=== PATIENT | male | born 1955 | race Hispanic/Latino ===

== ENCOUNTER 2019-02-06 11:29 | Inpatient (IN) | payer MEDICARE ==
[2019-02-06] MEDS ORDERED: LORazepam 2 MG/ML VIAL IM PRN (12:11)
[2019-02-06] MEDS ORDERED: HALOPERIDOL LACTATE 5 MG/1 ML INJ IM PRN (12:11)
[2019-02-06 17:38] LABS: Basophils # (Auto) 0.1 K/mm3 (0.0-0.1); Basophils % (Auto) 0.9 % (0.0-1.8); Eosinophils # (Auto) 0.1 K/mm3 (0.0-0.4); Eosinophils % (Auto) 1.9 % (0.0-4.3); Hematocrit 43.3 % (35.5-45.6); Hemoglobin 14.1 gm/dl (11.8-15.2); Lymphocytes # (Auto) 1.6 K/mm3 (1.2-5.4); Lymphocytes % (Auto) 24.5 % (13.4-35.0); Mean Corpuscular HGB Conc 33 % (32-34); Mean Corpuscular Volume 92 fl (84-94); Monocytes # (Auto) 0.4 K/mm3 (0.0-0.8); Monocytes % (Auto) 6.5 % (0.0-7.3); Platelet Count 248 K/mm3 (140-440); Red Blood Count 4.73 M/mm3 (3.65-5.03); Red Cell Distribution Width 14.9 % (13.2-15.2)
[2019-02-06 19:10] LABS: Alanine Aminotransferase 11 units/L (7-56); Albumin 3.8 g/dL (3.9-5); BUN/Creatinine Ratio 21; Blood Urea Nitrogen 15 mg/dL (9-20); Calcium 8.7 mg/dL (8.4-10.2); HDL Cholesterol 62 mg/dL (40-59); Hemolysis Index 29; LDL Cholesterol,Direct 66 mg/dL (50-130)
[2019-02-06] MEDS: traZODone 50 MG TAB PO SCH (23:13)
[2019-02-06] MEDS: risperiDONE 1 MG TAB PO SCH (23:14)
[2019-02-07] MEDS ORDERED: DOCUSATE SODIUM 100 MG CAP PO PRN (09:29)
[2019-02-07] MEDS ORDERED: NON-FORMULARY EACH (Cyclobenzaprine 10 MG) PO PRN (09:29)
[2019-02-07] MEDS ORDERED: risperiDONE 1 MG TAB PO SCH (10:00)
[2019-02-07] MEDS ORDERED: TIOTROPIUM 18 MCG CAP INHALATION IH SCH (10:00)
[2019-02-07] MEDS ORDERED: TRANDOLAPRIL PO SCH (10:00)
[2019-02-07] MEDS ORDERED: HYDROCHLOROTHIAZIDE 50 MG PO SCH (10:00)
[2019-02-07] MEDS ORDERED: VERAPAMIL PO SCH (10:00)
[2019-02-07] MEDS ORDERED: CYCLOBENZAPRINE 10 MG TAB PO PRN (10:20)
[2019-02-07] MEDS: FUROSEMIDE 20 MG TAB PO SCH (11:07)
[2019-02-07] MEDS: GABAPENTIN 300 MG CAP PO SCH ×2 (11:07→21:06)
[2019-02-07] MEDS: amLODIPine 5 MG TAB PO SCH (11:07)
[2019-02-07] MEDS: hydroCHLOROthiazide 25 MG TAB PO SCH (11:07)
[2019-02-07] MEDS: DULoxetine 30 MG CAP PO SCH (11:08)
[2019-02-07] MEDS: LORATADINE (NF) 10 MG TAB PO SCH (11:08)
[2019-02-07] MEDS: risperiDONE 1 MG TAB PO SCH ×2 (11:09→21:06)
--- NOTE | 2019-02-07 13:05 | History and Physical Report ---
GP History & Physical - History of Present Illness Date of admission: 02/06/19 Date of Examination: 02/07/19 Chief Complaint: Seeing stuffs History of Present Illness: Patient is a 63 y/o CM with h/o HTN, COPD, HLD, Polysubstance (Alcohol, Meth & THC) use disorder brought in by EMS. He presents with distressing visual hallucination, stating that he sees people sticky gel on his eyes and putting tooth picks in his ears. He admits to using meth and THC. He denies SI/HI Legal Status: Voluntary Patient Problems: Current Active Problems Methamphetamine use disorder, severe (Acute) Substance-induced psychotic disorder with hallucinations (Acute) Reaction to Hospitalization: Accepting Medications and Allergies Allergies Allergy/AdvReac Type Severity Reaction Status Date / Time ibuprofen Allergy Nausea Verified 02/06/19 21:29 Home Medications Medication Instructions Recorded Confirmed Last Taken Type Cyclobenzaprine 10 mg PO TID PRN 02/06/19 02/06/19 Unknown History DULoxetine [Cymbalta] 60 mg PO QDAY 02/06/19 02/06/19 Unknown History Docusate Sodium [Colace CAP] 100 mg PO DAILY PRN 02/06/19 02/06/19 Unknown History Furosemide [Lasix] 20 mg PO QDAY 02/06/19 02/06/19 Unknown History Gabapentin [Neurontin] 300 mg PO Q8HR 02/06/19 02/06/19 Unknown History Loratadine [Claritin] 10 mg PO DAILY 02/06/19 02/06/19 Unknown History Pravastatin [Pravachol] 40 mg PO QHS 02/06/19 02/06/19 Unknown History Tiotropium [Spiriva] 18 mcg IH QDAY 02/06/19 02/06/19 Unknown History Trandolapril/Verapamil HCl 4 mg PO DAILY 02/06/19 02/06/19 Unknown History amLODIPine [Norvasc] 5 mg PO DAILY 02/06/19 02/06/19 Unknown History hydroCHLOROthiazide 50 mg PO DAILY MDD HTN 02/06/19 02/06/19 Unknown History [Hydrochlorothiazide] risperiDONE [RisperDAL] 1 mg PO DAILY 02/06/19 02/06/19 Unknown History risperiDONE [RisperDAL] 2 mg PO HS 02/06/19 02/06/19 Unknown History Active Meds: Active Medications Amlodipine Besylate (Amlodipine) 5 mg PO DAILY [facility] Last Admin: 02/07/19 11:07 Dose: 5 mg Documented by: Cyclobenzaprine HCl (Flexeril) 10 mg PO Q8H PRN PRN Reason: Muscle Spasm Docusate Sodium (Colace) 100 mg PO DAILY PRN PRN Reason: Constipation Duloxetine HCl (Cymbalta) 60 mg PO QDAY [facility] Last Admin: 02/07/19 11:08 Dose: 60 mg Documented by: Furosemide (Lasix) 20 mg PO QDAY [facility] Last Admin: 02/07/19 11:07 Dose: 20 mg Documented by: Gabapentin (Gabapentin) 300 mg PO Q8HR [facility] Last Admin: 02/07/19 11:07 Dose: 300 mg Documented by: Haloperidol Lactate (Haldol) 5 mg IM Q6H PRN PRN Reason: Agitation Last Admin: 02/07/19 00:26 Dose: 5 mg Documented by: Hydrochlorothiazide (Hctz) 50 mg PO QDAY [facility] Last Admin: 02/07/19 11:07 Dose: 50 mg Documented by: Ipratropium [place] (Atrovent) 0.5 mg IH Q6HRT [facility] Lisinopril (Zestril) 20 mg PO QDAY [facility] Loratadine (Claritin) 10 mg PO DAILY [facility] Last Admin: 02/07/19 11:08 Dose: 10 mg Documented by: Lorazepam (Ativan) 2 mg IM Q6H PRN PRN Reason: Agitation Pravastatin Sodium (Pravachol) 40 mg PO QHS [facility] Risperidone (Risperdal) 1 mg PO DAILY [facility] Last Admin: 02/07/19 11:09 Dose: 1 mg Documented by: Risperidone (Risperdal) 2 mg PO QHS [facility] Last Admin: 02/06/19 23:14 Dose: 2 mg Documented by: Trazodone HCl (Desyrel) 50 mg PO QHS [facility] Last Admin: 02/06/19 23:13 Dose: 50 mg Documented by: Verapamil HCl (Calan Sr) 240 mg PO QDAY [facility] Substance History - Substance History Drug Use: marijuana, methamphetamine Tobacco Type: Cigarettes Alcohol Use: Yes Past psychiatric history - Past Medical History Past Medical History: COPD, hypertension - past Psychiatric treatment and history Psych: Anxiety - Social History Social history: lives with family, smoking, alcohol abuse Review of Systems All systems: negative Psychiatric: hallucinations Results - Results Labs/Vitals: Laboratory Last Values WBC 6.7 K/mm3 (4.5-11.0) 02/06/19 16:42 RBC 4.73 M/mm3 (3.65-5.03) 02/06/19 16:42 Hgb 14.1 gm/dl (11.8-15.2) 02/06/19 16:42 Hct 43.3 % (35.5-45.6) 02/06/19 16:42 MCV 92 fl (84-94) 02/06/19 16:42 MCH 30 pg (28-32) 02/06/19 16:42 MCHC 33 % (32-34) 02/06/19 16:42 RDW 14.9 % (13.2-15.2) 02/06/19 16:42 Plt Count 248 K/mm3 (140-440) 02/06/19 16:42 Lymph % (Auto) 24.5 % (13.4-35.0) 02/06/19 16:42 [place] % (Auto) 6.5 % (0.0-7.3) 02/06/19 16:42 Eos % (Auto) 1.9 % (0.0-4.3) 02/06/19 16:42 Baso % (Auto) 0.9 % (0.0-1.8) 02/06/19 16:42 Lymph # 1.6 K/mm3 (1.2-5.4) 02/06/19 16:42 Gibson # 0.4 K/mm3 (0.0-0.8) 02/06/19 16:42 Eos # 0.1 K/mm3 (0.0-0.4) 02/06/19 16:42 Baso # 0.1 K/mm3 (0.0-0.1) 02/06/19 16:42 Seg Neutrophils % 66.2 % (40.0-70.0) 02/06/19 16:42 Seg Neutrophils # 4.4 K/mm3 (1.8-7.7) 02/06/19 16:42 Sodium 143 mmol/L (137-145) 02/06/19 16:42 Potassium 3.8 mmol/L (3.6-5.0) 02/06/19 16:42 Chloride 107.7 mmol/L (98-107) H 02/06/19 16:42 Carbon Dioxide 19 mmol/L (22-30) L 02/06/19 16:42 Anion Gap 20 mmol/L 02/06/19 16:42 BUN 15 mg/dL (9-20) 02/06/19 16:42 Creatinine 0.7 mg/dL (0.8-1.5) L 02/06/19 16:42 Estimated GFR > 60 ml/min 02/06/19 16:42 BUN/Creatinine Ratio 21 % 02/06/19 16:42 Glucose 148 mg/dL (75-100) H 02/06/19 16:42 POC Glucose 95 (70-105) 02/06/19 17:33 Hemoglobin A1c 5.9 % (4-6) 02/06/19 16:42 Calcium 8.7 mg/dL (8.4-10.2) 02/06/19 16:42 Total Bilirubin 0.20 mg/dL (0.1-1.2) 02/06/19 16:42 AST 12 units/L (5-40) 02/06/19 16:42 ALT 11 units/L (7-56) 02/06/19 16:42 Alkaline Phosphatase 66 units/L (35-129) 02/06/19 16:42 Total Protein 6.6 g/dL (6.3-8.2) 02/06/19 16:42 Albumin 3.8 g/dL (3.9-5) L 02/06/19 16:42 Albumin/Globulin Ratio 1.4 % 02/06/19 16:42 Triglycerides 86 mg/dL (2-149) 02/06/19 16:42 Cholesterol 137 mg/dL (50-199) 02/06/19 16:42 LDL Cholesterol Direct 66 mg/dL (50-130) 02/06/19 16:42 HDL Cholesterol 62 mg/dL (40-59) H 02/06/19 16:42 Cholesterol/HDL Ratio 2.20 % 02/06/19 16:42 Last Vital Signs Temp 97.9 F 02/07/19 10:06 Pulse 90 02/07/19 11:07 Resp 16 02/07/19 10:06 BP 150/81 02/07/19 11:07 Pulse Ox 96 02/07/19 10:06 Physical Examination - Constitutional Vitals: Vital Signs Temp Pulse Resp BP Pulse Ox 97.9 F 90 16 150/81 96 02/07/19 10:06 02/07/19 11:07 02/07/19 10:06 02/07/19 11:07 02/07/19 10:06 Temperature -Last 24 Hours Temperature 97.9 F Temperature 97.6 F General appearance: Present: no acute distress, well-nourished - EENT Eyes: Present: PERRL, EOM intact ENT: hearing intact, clear oral mucosa - Neck Neck: Present: supple, normal ROM - Respiratory Respiratory effort: normal Mental Status Exam - Vital signs Last Vital Signs Temp 97.9 F 02/07/19 10:06 Pulse 90 02/07/19 11:07 Resp 16 02/07/19 10:06 BP 150/81 02/07/19 11:07 Pulse Ox 96 02/07/19 10:06 - Exam Orientation: time, place, person Affect: anxious Mood: congruent with affect Thought Process: Intact Perceptions: visual, tactile, hallucinations Speech: normal rate and pattern Concentration: focused Motor activity: normal Level of consciousness: alert Memory: Intact Interaction: cooperative Assessment and Plan - Psychiatric problem (1) Methamphetamine use disorder, severe Current Visit: Yes Status: Acute plan to address problem: As above (2) Substance-induced psychotic disorder with hallucinations Current Visit: Yes Status: Acute plan to address problem: Patient will be admitted for inpatient psychiatric evaluation, medication adjustment and close monitoring The patient's behavior, mood, sleep and appetite will be closely monitored. Patient will be enrolled in individual and group therapeutic sessions and encouraged to attend. Patient will be provided with a safe and structured environment. Patient's physical health needs will be addressed by the Hospitalist. Social Assessment will be completed and the Forestry Aide will work with patient and family to ensure a suitable and safe disposition Medication adjustment will be made as clinically indicated The patient agreed on the treatment plan, understood the risk, benefit, alternative treatment, potential consequence of no treatment, and gave informed consent. Physician Certification - Certification Statement Physician Certification Statement: This is an acknowledgement statement that HARPREET PÉREZ is a 63 year old M who requires inpatient psychiatric admission for treatment which could reasonably be expected to improve the patient's condition for Substance induced psychosis Estimated period of time patient will need to remain in the hospital: 7 days Plan for post-hospital care: Out-patient care
--- NOTE | 2019-02-07 13:29 | Consultation ---
History of Present Illness - Reason for Consult Consult date: 02/07/19 medical management - History of Present Illness Pt is a 63 y/o CM with h/o HTN, COPD and HLD who was admitted to the geriatric psych unit for evaluation. Consult was placed for medical management. Patient admitted to headaches and dry cough. He denies nausea, vomiting, chest pain, shortness of breath, palpitation, fever, chills, dizziness, syncope or loss of consciousness. No abdominal pain, constipation or diarrhea Past History Past Medical History: COPD, hypertension, hyperlipidemia, other (mood disorder) Past Surgical History: Other (neck surgery) Social history: smoking (patient has 40 years history of cigarette smoking), other (he admits to 2 years history of smoking methamphetamine and 40 years history of marijuana use. He is an ex-alcoholic abuser, he quit 2 years ago) Family history: hypertension (brother) Medications and Allergies Allergies Allergy/AdvReac Type Severity Reaction Status Date / Time ibuprofen Allergy Nausea Verified 02/06/19 21:29 Home Medications Medication Instructions Recorded Confirmed Last Taken Type Cyclobenzaprine 10 mg PO TID PRN 02/06/19 02/06/19 Unknown History DULoxetine [Cymbalta] 60 mg PO QDAY 02/06/19 02/06/19 Unknown History Docusate Sodium [Colace CAP] 100 mg PO DAILY PRN 02/06/19 02/06/19 Unknown History Furosemide [Lasix] 20 mg PO QDAY 02/06/19 02/06/19 Unknown History Gabapentin [Neurontin] 300 mg PO Q8HR 02/06/19 02/06/19 Unknown History Loratadine [Claritin] 10 mg PO DAILY 02/06/19 02/06/19 Unknown History Pravastatin [Pravachol] 40 mg PO QHS 02/06/19 02/06/19 Unknown History Tiotropium [Spiriva] 18 mcg IH QDAY 02/06/19 02/06/19 Unknown History Trandolapril/Verapamil HCl 4 mg PO DAILY 02/06/19 02/06/19 Unknown History amLODIPine [Norvasc] 5 mg PO DAILY 02/06/19 02/06/19 Unknown History hydroCHLOROthiazide 50 mg PO DAILY MDD HTN 02/06/19 02/06/19 Unknown History [Hydrochlorothiazide] risperiDONE [RisperDAL] 1 mg PO DAILY 02/06/19 02/06/19 Unknown History risperiDONE [RisperDAL] 2 mg PO HS 02/06/19 02/06/19 Unknown History Active Meds: Active Medications Amlodipine Besylate (Amlodipine) 5 mg PO DAILY [facility] Last Admin: 02/07/19 11:07 Dose: 5 mg Documented by: Cyclobenzaprine HCl (Flexeril) 10 mg PO Q8H PRN PRN Reason: Muscle Spasm Docusate Sodium (Colace) 100 mg PO DAILY PRN PRN Reason: Constipation Duloxetine HCl (Cymbalta) 60 mg PO QDAY [facility] Last Admin: 02/07/19 11:08 Dose: 60 mg Documented by: Furosemide (Lasix) 20 mg PO QDAY [facility] Last Admin: 02/07/19 11:07 Dose: 20 mg Documented by: Gabapentin (Gabapentin) 300 mg PO Q8HR [facility] Last Admin: 02/07/19 11:07 Dose: 300 mg Documented by: Haloperidol Lactate (Haldol) 5 mg IM Q6H PRN PRN Reason: Agitation Last Admin: 02/07/19 00:26 Dose: 5 mg Documented by: Hydrochlorothiazide (Hctz) 50 mg PO QDAY [facility] Last Admin: 02/07/19 11:07 Dose: 50 mg Documented by: Ipratropium [place] (Atrovent) 0.5 mg IH Q6HRT [facility] Lisinopril (Zestril) 20 mg PO QDAY [facility] Loratadine (Claritin) 10 mg PO DAILY [facility] Last Admin: 02/07/19 11:08 Dose: 10 mg Documented by: Lorazepam (Ativan) 2 mg IM Q6H PRN PRN Reason: Agitation Pravastatin Sodium (Pravachol) 40 mg PO QHS [facility] Risperidone (Risperdal) 1 mg PO DAILY [facility] Last Admin: 02/07/19 11:09 Dose: 1 mg Documented by: Risperidone (Risperdal) 2 mg PO QHS [facility] Last Admin: 02/06/19 23:14 Dose: 2 mg Documented by: Trazodone HCl (Desyrel) 50 mg PO QHS [facility] Last Admin: 02/06/19 23:13 Dose: 50 mg Documented by: Verapamil HCl (Calan Sr) 240 mg PO QDAY [facility] Review of Systems All systems: negative (all other systems reviewed with the patient and are negative unless otherwise stated above) Exam - Constitutional Vitals: Temp Pulse Resp BP Pulse Ox 97.9 F 90 16 150/81 96 02/07/19 10:06 02/07/19 11:07 02/07/19 10:06 02/07/19 11:07 02/07/19 10:06 General appearance: Present: no acute distress, well-nourished - EENT Eyes: Present: PERRL, EOM intact ENT: hearing intact, clear oral mucosa - Neck Neck: Present: supple, normal ROM - Respiratory Respiratory effort: normal Respiratory: bilateral: CTA - Cardiovascular Rhythm: regular Heart Sounds: Present: S1 & S2. Absent: rub, click - Extremities Extremities: No edema Peripheral Pulses: within normal limits - Abdominal General gastrointestinal: Present: soft, non-tender, non-distended, normal bowel sounds Male genitourinary: Present: deferred - Integumentary Integumentary: Present: clear, warm, dry - Musculoskeletal Musculoskeletal: gait normal, strength equal bilaterally - Psychiatric Psychiatric: cooperative - Neurologic Neurologic: CNII-XII intact, moves all extremities Results - Labs CBC & Chem 7: 02/06/19 16:42 02/06/19 16:42 Labs: Abnormal lab results 02/06/19 Range/Units 16:42 Chloride 107.7 H (98-107) mmol/L Carbon Dioxide 19 L (22-30) mmol/L Creatinine 0.7 L (0.8-1.5) mg/dL Glucose 148 H (75-100) mg/dL Albumin 3.8 L (3.9-5) g/dL HDL Cholesterol 62 H (40-59) mg/dL Assessment and Plan HTN -Stable -Home meds resumed. However monitor patient's blood patient closely since he is on multiple antihypertensives including double diuretics which can cause electrolyte abnormalities as well as renal impairment Metabolic acidosis -Monitor level COPD -No acute exacerbation -cont neb tx HLD -Continue statin Mood disorder -Treatment by the psych team Polysubstance abuse (tobacco, methamphetamine and marijuana) -cessation recommended Thank you for the consult, please call for any questions Time spent: 38 minutes
[2019-02-07] MEDS: LISINOPRIL 20 MG TAB PO SCH (13:33)
[2019-02-07] MEDS: VERAPAMIL ER 240 MG TAB PO SCH (19:30)
[2019-02-07] MEDS: PRAVASTATIN 40 MG TAB PO SCH (21:06)
[2019-02-07] MEDS: traZODone 50 MG TAB PO SCH (21:06)
[2019-02-07] MEDS: IPRATROPIUM 0.02% NEBU 2.5 ML IH SCH (21:49)
[2019-02-07] MEDS ORDERED: NON-FORMULARY EACH (Risperidone [Risperdal] 2 MG) PO SCH (22:00)
[2019-02-08] MEDS: IPRATROPIUM 0.02% NEBU 2.5 ML IH SCH (02:16)
[2019-02-08] MEDS: GABAPENTIN 300 MG CAP PO SCH ×3 (05:40→21:54)
[2019-02-08] MEDS: LISINOPRIL 20 MG TAB PO SCH (10:08)
[2019-02-08] MEDS: amLODIPine 5 MG TAB PO SCH (10:08)
[2019-02-08] MEDS: hydroCHLOROthiazide 25 MG TAB PO SCH (10:09)
[2019-02-08] MEDS: DULoxetine 30 MG CAP PO SCH (10:09)
[2019-02-08] MEDS: VERAPAMIL ER 240 MG TAB PO SCH (10:09)
[2019-02-08] MEDS: risperiDONE 1 MG TAB PO SCH ×2 (10:09→21:53)
[2019-02-08] MEDS: FUROSEMIDE 20 MG TAB PO SCH (10:09)
[2019-02-08] MEDS: LORATADINE (NF) 10 MG TAB PO SCH (10:09)
[2019-02-08 11:05] LABS: BUN/Creatinine Ratio 30; Blood Urea Nitrogen 21 mg/dL (9-20); Calcium 9.2 mg/dL (8.4-10.2); Hemolysis Index 30
--- NOTE | 2019-02-08 11:21 | Progress Note ---
Subjective Date of service: 02/08/19 Principal diagnosis: Substance induced psychosis Subjective Comment: Patient reviewed this morning. He reports feeling very tired, denies SI/HI/AVH. Per Nursing note, patient was medicated with haldol 5mg IM at 0026 for visual hallucination, Patient reported that he was seeing devil, medication effective. Objective - Criteria for Continued Treatment Criteria for Continued Treatment: Improving Level of Functioning, Stablizing Level of Functioning, Improving Emotional/Socia, Decreasing Frequency of Hospitalization - Objective Observation Participation Level: Moderate Assessment and Plan - Patient Problems (1) Methamphetamine use disorder, severe Current Visit: Yes Status: Acute Plan to address problem: As above (2) Substance-induced psychotic disorder with hallucinations Current Visit: Yes Status: Acute Plan to address problem: Patient will be admitted for inpatient psychiatric evaluation, medication adjustment and close monitoring The patient's behavior, mood, sleep and appetite will be closely monitored. Patient will be enrolled in individual and group therapeutic sessions and encouraged to attend. Patient will be provided with a safe and structured environment. Patient's physical health needs will be addressed by the Hospitalist. Social Assessment will be completed and the Hat Trimmer will work with patient and family to ensure a suitable and safe disposition Medication adjustment will be made as clinically indicated The patient agreed on the treatment plan, understood the risk, benefit, alternative treatment, potential consequence of no treatment, and gave informed consent. Medications and Allergies Allergies Allergy/AdvReac Type Severity Reaction Status Date / Time ibuprofen Allergy Nausea Verified 02/06/19 21:29 Home Medications Medication Instructions Recorded Confirmed Last Taken Type Cyclobenzaprine 10 mg PO TID PRN 02/06/19 02/06/19 Unknown History DULoxetine [Cymbalta] 60 mg PO QDAY 02/06/19 02/06/19 Unknown History Docusate Sodium [Colace CAP] 100 mg PO DAILY PRN 02/06/19 02/06/19 Unknown History Furosemide [Lasix] 20 mg PO QDAY 02/06/19 02/06/19 Unknown History Gabapentin [Neurontin] 300 mg PO Q8HR 02/06/19 02/06/19 Unknown History Loratadine [Claritin] 10 mg PO DAILY 02/06/19 02/06/19 Unknown History Pravastatin [Pravachol] 40 mg PO QHS 02/06/19 02/06/19 Unknown History Tiotropium [Spiriva] 18 mcg IH QDAY 02/06/19 02/06/19 Unknown History Trandolapril/Verapamil HCl 4 mg PO DAILY 02/06/19 02/06/19 Unknown History amLODIPine [Norvasc] 5 mg PO DAILY 02/06/19 02/06/19 Unknown History hydroCHLOROthiazide 50 mg PO DAILY MDD HTN 02/06/19 02/06/19 Unknown History [Hydrochlorothiazide] risperiDONE [RisperDAL] 1 mg PO DAILY 02/06/19 02/06/19 Unknown History risperiDONE [RisperDAL] 2 mg PO HS 02/06/19 02/06/19 Unknown History Active Meds: Active Medications Amlodipine Besylate (Amlodipine) 5 mg PO DAILY [facility] Last Admin: 02/08/19 10:08 Dose: Not Given Documented by: Cyclobenzaprine HCl (Flexeril) 10 mg PO Q8H PRN PRN Reason: Muscle Spasm Docusate Sodium (Colace) 100 mg PO DAILY PRN PRN Reason: Constipation Duloxetine HCl (Cymbalta) 60 mg PO QDAY [facility] Last Admin: 02/08/19 10:09 Dose: 60 mg Documented by: Furosemide (Lasix) 20 mg PO QDAY [facility] Last Admin: 02/08/19 10:09 Dose: 20 mg Documented by: Gabapentin (Gabapentin) 300 mg PO Q8HR [facility] Last Admin: 02/08/19 05:40 Dose: 300 mg Documented by: Haloperidol Lactate (Haldol) 5 mg IM Q6H PRN PRN Reason: Agitation Last Admin: 02/07/19 00:26 Dose: 5 mg Documented by: Hydrochlorothiazide (Hctz) 50 mg PO QDAY [facility] Last Admin: 02/08/19 10:09 Dose: 50 mg Documented by: Ipratropium [place] (Atrovent) 0.5 mg IH Q6HRT [facility] Last Admin: 02/08/19 02:16 Dose: Not Given Documented by: Lisinopril (Zestril) 20 mg PO QDAY [facility] Last Admin: 02/08/19 10:08 Dose: Not Given Documented by: Loratadine (Claritin) 10 mg PO DAILY [facility] Last Admin: 02/08/19 10:09 Dose: 10 mg Documented by: Lorazepam (Ativan) 2 mg IM Q6H PRN PRN Reason: Agitation Pravastatin Sodium (Pravachol) 40 mg PO QHS [facility] Last Admin: 02/07/19 21:06 Dose: 40 mg Documented by: Risperidone (Risperdal) 1 mg PO DAILY [facility] Last Admin: 02/08/19 10:09 Dose: 1 mg Documented by: Risperidone (Risperdal) 2 mg PO QHS [facility] Last Admin: 02/07/19 21:06 Dose: 2 mg Documented by: Trazodone HCl (Desyrel) 50 mg PO QHS [facility] Last Admin: 02/07/19 21:06 Dose: 50 mg Documented by: Verapamil HCl (Calan Sr) 240 mg PO QDAY [facility] Last Admin: 02/08/19 10:09 Dose: Not Given Documented by: Results - Results Labs/Vitals: Laboratory Last Values WBC 6.7 K/mm3 (4.5-11.0) 02/06/19 16:42 RBC 4.73 M/mm3 (3.65-5.03) 02/06/19 16:42 Hgb 14.1 gm/dl (11.8-15.2) 02/06/19 16:42 Hct 43.3 % (35.5-45.6) 02/06/19 16:42 MCV 92 fl (84-94) 02/06/19 16:42 MCH 30 pg (28-32) 02/06/19 16:42 MCHC 33 % (32-34) 02/06/19 16:42 RDW 14.9 % (13.2-15.2) 02/06/19 16:42 Plt Count 248 K/mm3 (140-440) 02/06/19 16:42 Lymph % (Auto) 24.5 % (13.4-35.0) 02/06/19 16:42 [place] % (Auto) 6.5 % (0.0-7.3) 02/06/19 16:42 Eos % (Auto) 1.9 % (0.0-4.3) 02/06/19 16:42 Baso % (Auto) 0.9 % (0.0-1.8) 02/06/19 16:42 Lymph # 1.6 K/mm3 (1.2-5.4) 02/06/19 16:42 Gregory # 0.4 K/mm3 (0.0-0.8) 02/06/19 16:42 Eos # 0.1 K/mm3 (0.0-0.4) 02/06/19 16:42 Baso # 0.1 K/mm3 (0.0-0.1) 02/06/19 16:42 Seg Neutrophils % 66.2 % (40.0-70.0) 02/06/19 16:42 Seg Neutrophils # 4.4 K/mm3 (1.8-7.7) 02/06/19 16:42 Sodium 138 mmol/L (137-145) 02/08/19 09:29 Potassium 4.3 mmol/L (3.6-5.0) 02/08/19 09:29 Chloride 101.2 mmol/L (98-107) 02/08/19 09:29 Carbon Dioxide 20 mmol/L (22-30) L 02/08/19 09:29 Anion Gap 21 mmol/L 02/08/19 09:29 BUN 21 mg/dL (9-20) H 02/08/19 09:29 Creatinine 0.7 mg/dL (0.8-1.5) L 02/08/19 09:29 Estimated GFR > 60 ml/min 02/08/19 09:29 BUN/Creatinine Ratio 30 % 02/08/19 09:29 Glucose 202 mg/dL (75-100) H 02/08/19 09:29 POC Glucose 95 (70-105) 02/06/19 17:33 Hemoglobin A1c 5.9 % (4-6) 02/06/19 16:42 Calcium 9.2 mg/dL (8.4-10.2) 02/08/19 09:29 Total Bilirubin 0.20 mg/dL (0.1-1.2) 02/06/19 16:42 AST 12 units/L (5-40) 02/06/19 16:42 ALT 11 units/L (7-56) 02/06/19 16:42 Alkaline Phosphatase 66 units/L (35-129) 02/06/19 16:42 Total Protein 6.6 g/dL (6.3-8.2) 02/06/19 16:42 Albumin 3.8 g/dL (3.9-5) L 02/06/19 16:42 Albumin/Globulin Ratio 1.4 % 02/06/19 16:42 Triglycerides 86 mg/dL (2-149) 02/06/19 16:42 Cholesterol 137 mg/dL (50-199) 02/06/19 16:42 LDL Cholesterol Direct 66 mg/dL (50-130) 02/06/19 16:42 HDL Cholesterol 62 mg/dL (40-59) H 02/06/19 16:42 Cholesterol/HDL Ratio 2.20 % 02/06/19 16:42 Last Vital Signs Temp 97.9 F 02/08/19 09:43 Pulse 105 H 02/08/19 10:09 Resp 16 02/08/19 09:43 BP 93/61 02/08/19 10:09 Pulse Ox 94 02/08/19 09:43 Mental Status Exam - Vital signs Last Vital Signs Temp 98.2 F 02/08/19 19:46 Pulse 85 02/08/19 19:46 Resp 18 02/08/19 19:46 BP 97/59 02/08/19 19:46 Pulse Ox 92 02/08/19 19:46 - Exam Orientation: time, place, person Affect: flat Mood: congruent with affect Thought Process: Intact Perceptions: visual, hallucinations Speech: normal rate and pattern Concentration: focused Motor activity: lethargic Memory: Intact Interaction: cooperative
[2019-02-08] MEDS: traZODone 50 MG TAB PO SCH (21:53)
[2019-02-08] MEDS: PRAVASTATIN 40 MG TAB PO SCH (23:16)
[2019-02-09] MEDS: IPRATROPIUM 0.02% NEBU 2.5 ML IH SCH ×4 (03:25→10:14)
[2019-02-09] MEDS: GABAPENTIN 300 MG CAP PO SCH ×3 (07:21→22:25)
--- NOTE | 2019-02-09 08:57 | Progress Note ---
Subjective Date of service: 02/09/19 Principal diagnosis: Substance induced psychosis Subjective Comment: Patient reviewed this morning. Patient presents lying in bed resting, patient was awaken with a good morning greeting. Patient stated that he experienced visual hallucinations last night but denies auditory hallucinations. Patient is med compliant, confirms the use of meth and denies SI/HI/AVH. Nurses reports that patient slept majority of the day, very isolated and withdrawn, patient is eating well and sleeping well throughout the night. MSE Orientation: Alert Affect: Calm Mood: congruent with affect Thought Process: organized Perceptions: none Speech: trevor; Concentration: focused Motor activity: normal Level of consciousness: alert Memory: Impaired Interaction: Moderate Objective - Criteria for Continued Treatment Criteria for Continued Treatment: Stablizing Level of Functioning - Mental Status Mental Status: Oriented x 3 - Objective Observation Participation Level: Moderate Assessment and Plan - Patient Problems (1) Methamphetamine use disorder, severe Current Visit: Yes Status: Acute Plan to address problem: As above (2) Substance-induced psychotic disorder with hallucinations Current Visit: Yes Status: Acute Plan to address problem: Patient will be admitted for inpatient psychiatric evaluation, medication adjustment and close monitoring The patient's behavior, mood, sleep and appetite will be closely monitored. Patient will be enrolled in individual and group therapeutic sessions and encouraged to attend. Patient will be provided with a safe and structured environment. Patient's physical health needs will be addressed by the Hospitalist. Social Assessment will be completed and the Master Rigger will work with patient and family to ensure a suitable and safe disposition Medication adjustment will be made as clinically indicated The patient agreed on the treatment plan, understood the risk, benefit, alternative treatment, potential consequence of no treatment, and gave informed consent. Medications and Allergies Allergies Allergy/AdvReac Type Severity Reaction Status Date / Time ibuprofen Allergy Nausea Verified 02/06/19 21:29 Home Medications Medication Instructions Recorded Confirmed Last Taken Type Cyclobenzaprine 10 mg PO TID PRN 02/06/19 02/06/19 Unknown History DULoxetine [Cymbalta] 60 mg PO QDAY 02/06/19 02/06/19 Unknown History Docusate Sodium [Colace CAP] 100 mg PO DAILY PRN 02/06/19 02/06/19 Unknown History Furosemide [Lasix] 20 mg PO QDAY 02/06/19 02/06/19 Unknown History Gabapentin [Neurontin] 300 mg PO Q8HR 02/06/19 02/06/19 Unknown History Loratadine [Claritin] 10 mg PO DAILY 02/06/19 02/06/19 Unknown History Pravastatin [Pravachol] 40 mg PO QHS 02/06/19 02/06/19 Unknown History Tiotropium [Spiriva] 18 mcg IH QDAY 02/06/19 02/06/19 Unknown History Trandolapril/Verapamil HCl 4 mg PO DAILY 02/06/19 02/06/19 Unknown History amLODIPine [Norvasc] 5 mg PO DAILY 02/06/19 02/06/19 Unknown History hydroCHLOROthiazide 50 mg PO DAILY MDD HTN 02/06/19 02/06/19 Unknown History [Hydrochlorothiazide] risperiDONE [RisperDAL] 1 mg PO DAILY 02/06/19 02/06/19 Unknown History risperiDONE [RisperDAL] 2 mg PO HS 02/06/19 02/06/19 Unknown History Active Meds: Active Medications Amlodipine Besylate (Amlodipine) 5 mg PO DAILY [facility] Last Admin: 02/08/19 10:08 Dose: Not Given Documented by: Cyclobenzaprine HCl (Flexeril) 10 mg PO Q8H PRN PRN Reason: Muscle Spasm Docusate Sodium (Colace) 100 mg PO DAILY PRN PRN Reason: Constipation Duloxetine HCl (Cymbalta) 60 mg PO QDAY [facility] Last Admin: 02/08/19 10:09 Dose: 60 mg Documented by: Furosemide (Lasix) 20 mg PO QDAY [facility] Last Admin: 02/08/19 10:09 Dose: 20 mg Documented by: Gabapentin (Gabapentin) 300 mg PO Q8HR [facility] Last Admin: 02/09/19 07:21 Dose: 300 mg Documented by: Haloperidol Lactate (Haldol) 5 mg IM Q6H PRN PRN Reason: Agitation Last Admin: 02/07/19 00:26 Dose: 5 mg Documented by: Hydrochlorothiazide (Hctz) 50 mg PO QDAY [facility] Last Admin: 02/08/19 10:09 Dose: 50 mg Documented by: Ipratropium [place] (Atrovent) 0.5 mg IH Q6HRT [facility] Last Admin: 02/09/19 03:25 Dose: Not Given Documented by: Lisinopril (Zestril) 20 mg PO QDAY [facility] Last Admin: 02/08/19 10:08 Dose: Not Given Documented by: Loratadine (Claritin) 10 mg PO DAILY [facility] Last Admin: 02/08/19 10:09 Dose: 10 mg Documented by: Lorazepam (Ativan) 2 mg IM Q6H PRN PRN Reason: Agitation Pravastatin Sodium (Pravachol) 40 mg PO QHS [facility] Last Admin: 02/08/19 23:16 Dose: 40 mg Documented by: Risperidone (Risperdal) 1 mg PO DAILY [facility] Last Admin: 02/08/19 10:09 Dose: 1 mg Documented by: Risperidone (Risperdal) 2 mg PO QHS [facility] Last Admin: 02/08/19 21:53 Dose: 2 mg Documented by: Trazodone HCl (Desyrel) 50 mg PO QHS [facility] Last Admin: 02/08/19 21:53 Dose: 50 mg Documented by: Verapamil HCl (Calan Sr) 240 mg PO QDAY [facility] Last Admin: 02/08/19 10:09 Dose: Not Given Documented by: Results - Results Labs/Vitals: Laboratory Last Values WBC 6.7 K/mm3 (4.5-11.0) 02/06/19 16:42 RBC 4.73 M/mm3 (3.65-5.03) 02/06/19 16:42 Hgb 14.1 gm/dl (11.8-15.2) 02/06/19 16:42 Hct 43.3 % (35.5-45.6) 02/06/19 16:42 MCV 92 fl (84-94) 02/06/19 16:42 MCH 30 pg (28-32) 02/06/19 16:42 MCHC 33 % (32-34) 02/06/19 16:42 RDW 14.9 % (13.2-15.2) 02/06/19 16:42 Plt Count 248 K/mm3 (140-440) 02/06/19 16:42 Lymph % (Auto) 24.5 % (13.4-35.0) 02/06/19 16:42 [place] % (Auto) 6.5 % (0.0-7.3) 02/06/19 16:42 Eos % (Auto) 1.9 % (0.0-4.3) 02/06/19 16:42 Baso % (Auto) 0.9 % (0.0-1.8) 02/06/19 16:42 Lymph # 1.6 K/mm3 (1.2-5.4) 02/06/19 16:42 [place] # 0.4 K/mm3 (0.0-0.8) 02/06/19 16:42 Eos # 0.1 K/mm3 (0.0-0.4) 02/06/19 16:42 Baso # 0.1 K/mm3 (0.0-0.1) 02/06/19 16:42 Seg Neutrophils % 66.2 % (40.0-70.0) 02/06/19 16:42 Seg Neutrophils # 4.4 K/mm3 (1.8-7.7) 02/06/19 16:42 Sodium 138 mmol/L (137-145) 02/08/19 09:29 Potassium 4.3 mmol/L (3.6-5.0) 02/08/19 09:29 Chloride 101.2 mmol/L (98-107) 02/08/19 09:29 Carbon Dioxide 20 mmol/L (22-30) L 02/08/19 09:29 Anion Gap 21 mmol/L 02/08/19 09:29 BUN 21 mg/dL (9-20) H 02/08/19 09:29 Creatinine 0.7 mg/dL (0.8-1.5) L 02/08/19 09:29 Estimated GFR > 60 ml/min 02/08/19 09:29 BUN/Creatinine Ratio 30 % 02/08/19 09:29 Glucose 202 mg/dL (75-100) H 02/08/19 09:29 POC Glucose 95 (70-105) 02/06/19 17:33 Hemoglobin A1c 5.9 % (4-6) 02/06/19 16:42 Calcium 9.2 mg/dL (8.4-10.2) 02/08/19 09:29 Total Bilirubin 0.20 mg/dL (0.1-1.2) 02/06/19 16:42 AST 12 units/L (5-40) 02/06/19 16:42 ALT 11 units/L (7-56) 02/06/19 16:42 Alkaline Phosphatase 66 units/L (35-129) 02/06/19 16:42 Total Protein 6.6 g/dL (6.3-8.2) 02/06/19 16:42 Albumin 3.8 g/dL (3.9-5) L 02/06/19 16:42 Albumin/Globulin Ratio 1.4 % 02/06/19 16:42 Triglycerides 86 mg/dL (2-149) 02/06/19 16:42 Cholesterol 137 mg/dL (50-199) 02/06/19 16:42 LDL Cholesterol Direct 66 mg/dL (50-130) 02/06/19 16:42 HDL Cholesterol 62 mg/dL (40-59) H 02/06/19 16:42 Cholesterol/HDL Ratio 2.20 % 02/06/19 16:42 Last Vital Signs Temp 98.2 F 02/08/19 19:46 Pulse 85 02/08/19 19:46 Resp 18 02/08/19 19:46 BP 97/59 02/08/19 19:46 Pulse Ox 92 02/08/19 19:46
[2019-02-09] MEDS: LISINOPRIL 20 MG TAB PO SCH (09:56)
[2019-02-09] MEDS: LORATADINE (NF) 10 MG TAB PO SCH (09:57)
[2019-02-09] MEDS: DULoxetine 30 MG CAP PO SCH (09:57)
[2019-02-09] MEDS: amLODIPine 5 MG TAB PO SCH (09:57)
[2019-02-09] MEDS: risperiDONE 1 MG TAB PO SCH ×2 (09:57→22:24)
[2019-02-09] MEDS: FUROSEMIDE 20 MG TAB PO SCH (09:57)
[2019-02-09] MEDS: hydroCHLOROthiazide 25 MG TAB PO SCH (09:58)
[2019-02-09] MEDS: VERAPAMIL ER 240 MG TAB PO SCH (09:58)
[2019-02-09] MEDS ORDERED: IPRATROPIUM 0.02% NEBU 2.5 ML IH SCH ×2 (14:00)
[2019-02-09] MEDS: ACETAMINOPHEN 325 MG TAB PO PRN (17:35)
[2019-02-09] MEDS: PRAVASTATIN 40 MG TAB PO SCH (22:24)
[2019-02-09] MEDS: traZODone 50 MG TAB PO SCH (22:24)
[2019-02-10] MEDS: GABAPENTIN 300 MG CAP PO SCH ×3 (06:38→21:05)
--- NOTE | 2019-02-10 07:17 | Progress Note ---
Subjective Date of service: 02/10/19 Principal diagnosis: Substance induced psychosis Subjective Comment: Patient reviewed this morning. Patient was eating breakfast calmly and was coherent and understanding of his present condition. Patient stated he had a bad headache, slept well, and had no thoughts of suicide. Patient is med compliant, denies side effects and denies SI/HI/AVH. Nurses reports that Patient was drowsy all evening. Patient was pleasant and cooperative. His affect is still depressed. He is medication compliant. The patient slept all night for 9 hours. MSE Orientation: Alert Affect: Depressed Mood: congruent with affect Thought Process: organized Perceptions: none Speech: normal Concentration: focused Motor activity: normal Level of consciousness: alert Memory: intact Interaction: Moderate Objective - Criteria for Continued Treatment Criteria for Continued Treatment: Understanding Diagnosis and need for Medication - Mental Status Mental Status: Alert - Objective Observation Participation Level: Moderate Assessment and Plan - Patient Problems (1) Methamphetamine use disorder, severe Current Visit: Yes Status: Acute Plan to address problem: As below (2) Substance-induced psychotic disorder with hallucinations Current Visit: Yes Status: Acute Plan to address problem: Patient will be admitted for inpatient psychiatric evaluation, medication adjustment and close monitoring The patient's behavior, mood, sleep and appetite will be closely monitored. Patient will be enrolled in individual and group therapeutic sessions and encouraged to attend. Patient will be provided with a safe and structured environment. Patient's physical health needs will be addressed by the Hospitalist. Social Assessment will be completed and the Gas Station Supervisor will work with patient and family to ensure a suitable and safe disposition Medication adjustment will be made as clinically indicated The patient agreed on the treatment plan, understood the risk, benefit, alternative treatment, potential consequence of no treatment, and gave informed consent. Medications and Allergies Allergies Allergy/AdvReac Type Severity Reaction Status Date / Time ibuprofen Allergy Nausea Verified 02/06/19 21:29 Home Medications Medication Instructions Recorded Confirmed Last Taken Type Cyclobenzaprine 10 mg PO TID PRN 02/06/19 02/06/19 Unknown History DULoxetine [Cymbalta] 60 mg PO QDAY 02/06/19 02/06/19 Unknown History Docusate Sodium [Colace CAP] 100 mg PO DAILY PRN 02/06/19 02/06/19 Unknown History Furosemide [Lasix] 20 mg PO QDAY 02/06/19 02/06/19 Unknown History Gabapentin [Neurontin] 300 mg PO Q8HR 02/06/19 02/06/19 Unknown History Loratadine [Claritin] 10 mg PO DAILY 02/06/19 02/06/19 Unknown History Pravastatin [Pravachol] 40 mg PO QHS 02/06/19 02/06/19 Unknown History Tiotropium [Spiriva] 18 mcg IH QDAY 02/06/19 02/06/19 Unknown History Trandolapril/Verapamil HCl 4 mg PO DAILY 02/06/19 02/06/19 Unknown History amLODIPine [Norvasc] 5 mg PO DAILY 02/06/19 02/06/19 Unknown History hydroCHLOROthiazide 50 mg PO DAILY MDD HTN 02/06/19 02/06/19 Unknown History [Hydrochlorothiazide] risperiDONE [RisperDAL] 1 mg PO DAILY 02/06/19 02/06/19 Unknown History risperiDONE [RisperDAL] 2 mg PO HS 02/06/19 02/06/19 Unknown History Active Meds: Active Medications Acetaminophen (Tylenol) 650 mg PO Q6H PRN PRN Reason: Pain, Mild (1-3) Last Admin: 02/09/19 17:35 Dose: 650 mg Documented by: Amlodipine Besylate (Amlodipine) 5 mg PO DAILY [facility] Last Admin: 02/09/19 09:57 Dose: 5 mg Documented by: Cyclobenzaprine HCl (Flexeril) 10 mg PO Q8H PRN PRN Reason: Muscle Spasm Docusate Sodium (Colace) 100 mg PO DAILY PRN PRN Reason: Constipation Duloxetine HCl (Cymbalta) 60 mg PO QDAY [facility] Last Admin: 02/09/19 09:57 Dose: 60 mg Documented by: Furosemide (Lasix) 20 mg PO QDAY [facility] Last Admin: 02/09/19 09:57 Dose: 20 mg Documented by: Gabapentin (Gabapentin) 300 mg PO Q8HR [facility] Last Admin: 02/10/19 06:38 Dose: 300 mg Documented by: Haloperidol Lactate (Haldol) 5 mg IM Q6H PRN PRN Reason: Agitation Last Admin: 02/07/19 00:26 Dose: 5 mg Documented by: Hydrochlorothiazide (Hctz) 50 mg PO QDAY [facility] Last Admin: 02/09/19 09:58 Dose: 50 mg Documented by: Lisinopril (Zestril) 20 mg PO QDAY [facility] Last Admin: 02/09/19 09:56 Dose: 20 mg Documented by: Loratadine (Claritin) 10 mg PO DAILY [facility] Last Admin: 02/09/19 09:57 Dose: 10 mg Documented by: Lorazepam (Ativan) 2 mg IM Q6H PRN PRN Reason: Agitation Pravastatin Sodium (Pravachol) 40 mg PO QHS [facility] Last Admin: 02/09/19 22:24 Dose: 40 mg Documented by: Risperidone (Risperdal) 1 mg PO DAILY [facility] Last Admin: 02/09/19 09:57 Dose: 1 mg Documented by: Risperidone (Risperdal) 2 mg PO QHS [facility] Last Admin: 02/09/19 22:24 Dose: 2 mg Documented by: Tiotropium [place] (Spiriva) 1 puff IH Q24HRT [facility] Trazodone HCl (Desyrel) 50 mg PO QHS [facility] Last Admin: 02/09/19 22:24 Dose: 50 mg Documented by: Verapamil HCl (Calan Sr) 240 mg PO QDAY [facility] Last Admin: 02/09/19 09:58 Dose: 240 mg Documented by: Results - Results Labs/Vitals: Laboratory Last Values WBC 6.7 K/mm3 (4.5-11.0) 02/06/19 16:42 RBC 4.73 M/mm3 (3.65-5.03) 02/06/19 16:42 Hgb 14.1 gm/dl (11.8-15.2) 02/06/19 16:42 Hct 43.3 % (35.5-45.6) 02/06/19 16:42 MCV 92 fl (84-94) 02/06/19 16:42 MCH 30 pg (28-32) 02/06/19 16:42 MCHC 33 % (32-34) 02/06/19 16:42 RDW 14.9 % (13.2-15.2) 02/06/19 16:42 Plt Count 248 K/mm3 (140-440) 02/06/19 16:42 Lymph % (Auto) 24.5 % (13.4-35.0) 02/06/19 16:42 [place] % (Auto) 6.5 % (0.0-7.3) 02/06/19 16:42 Eos % (Auto) 1.9 % (0.0-4.3) 02/06/19 16:42 Baso % (Auto) 0.9 % (0.0-1.8) 02/06/19 16:42 Lymph # 1.6 K/mm3 (1.2-5.4) 02/06/19 16:42 [place] # 0.4 K/mm3 (0.0-0.8) 02/06/19 16:42 Eos # 0.1 K/mm3 (0.0-0.4) 02/06/19 16:42 Baso # 0.1 K/mm3 (0.0-0.1) 02/06/19 16:42 Seg Neutrophils % 66.2 % (40.0-70.0) 02/06/19 16:42 Seg Neutrophils # 4.4 K/mm3 (1.8-7.7) 02/06/19 16:42 Sodium 138 mmol/L (137-145) 02/08/19 09:29 Potassium 4.3 mmol/L (3.6-5.0) 02/08/19 09:29 Chloride 101.2 mmol/L (98-107) 02/08/19 09:29 Carbon Dioxide 20 mmol/L (22-30) L 02/08/19 09:29 Anion Gap 21 mmol/L 02/08/19 09:29 BUN 21 mg/dL (9-20) H 02/08/19 09:29 Creatinine 0.7 mg/dL (0.8-1.5) L 02/08/19 09:29 Estimated GFR > 60 ml/min 02/08/19 09:29 BUN/Creatinine Ratio 30 % 02/08/19 09:29 Glucose 202 mg/dL (75-100) H 02/08/19 09:29 POC Glucose 95 (70-105) 02/06/19 17:33 Hemoglobin A1c 5.9 % (4-6) 02/06/19 16:42 Calcium 9.2 mg/dL (8.4-10.2) 02/08/19 09:29 Total Bilirubin 0.20 mg/dL (0.1-1.2) 02/06/19 16:42 AST 12 units/L (5-40) 02/06/19 16:42 ALT 11 units/L (7-56) 02/06/19 16:42 Alkaline Phosphatase 66 units/L (35-129) 02/06/19 16:42 Total Protein 6.6 g/dL (6.3-8.2) 02/06/19 16:42 Albumin 3.8 g/dL (3.9-5) L 02/06/19 16:42 Albumin/Globulin Ratio 1.4 % 02/06/19 16:42 Triglycerides 86 mg/dL (2-149) 02/06/19 16:42 Cholesterol 137 mg/dL (50-199) 02/06/19 16:42 LDL Cholesterol Direct 66 mg/dL (50-130) 02/06/19 16:42 HDL Cholesterol 62 mg/dL (40-59) H 02/06/19 16:42 Cholesterol/HDL Ratio 2.20 % 02/06/19 16:42 Last Vital Signs Temp 97.2 F L 02/09/19 18:57 Pulse 96 H 02/09/19 18:57 Resp 18 02/09/19 18:57 BP 69/49 02/09/19 18:57 Pulse Ox 95 02/09/19 18:57
[2019-02-10] MEDS ORDERED: TIOTROPIUM 18 MCG CAP INHALATION IH SCH ×2 (09:00→15:00)
[2019-02-10] MEDS: DULoxetine 30 MG CAP PO SCH (09:17)
[2019-02-10] MEDS: risperiDONE 1 MG TAB PO SCH ×2 (09:19→21:05)
[2019-02-10] MEDS: hydroCHLOROthiazide 25 MG TAB PO SCH (09:19)
[2019-02-10] MEDS: LORATADINE (NF) 10 MG TAB PO SCH (09:20)
[2019-02-10] MEDS: FUROSEMIDE 20 MG TAB PO SCH (09:21)
[2019-02-10] MEDS: TIOTROPIUM 18 MCG CAP INHALATION IH SCH (11:54)
[2019-02-10] MEDS: amLODIPine 5 MG TAB PO SCH (15:58)
[2019-02-10] MEDS: VERAPAMIL ER 240 MG TAB PO SCH (15:58)
[2019-02-10] MEDS: LISINOPRIL 20 MG TAB PO SCH (16:03)
[2019-02-10] MEDS: PRAVASTATIN 40 MG TAB PO SCH (21:05)
[2019-02-10] MEDS: traZODone 50 MG TAB PO SCH (21:05)
[2019-02-11] MEDS: GABAPENTIN 300 MG CAP PO SCH ×3 (05:29→21:45)
--- NOTE | 2019-02-11 07:22 | Progress Note ---
Subjective Date of service: 02/11/19 Principal diagnosis: Substance induced psychosis Subjective Comment: Patient presented today eating breakfast, stating that he feels better than he did yesterday. Patient stated that yesterday evening he has visual hallucinations but have not experienced any since. Patient stated that slept great, his appetite is good and he is med complaint. Patient wasn't sure why he was here and had questions about being discharged. Patient stated that he only remember calling the ambulance cause he felt sick like someone was trying to poison him. He also stated that he would like to get back home to his house because he stays on family property and lets his nephew live with him. Patient stated that his nephew does not care for anything and will not take care of his house or feed his cat so he will like to get back to it to take care of it. Pateint stated that things are being stolen from his house and he wants to get back to see if there is anything left. It was explained to the patient that he is here due to his use of meth and with that being the case what do he plan to do moving forward. Patient stated that he is done using drugs, and he plans to continue taking his medication to improve his symptoms. Nurses reports that Patient rested well during the night for 8 hours plus, patient was calm and cooperative, denies SI/HI, denies A/V/H, good appetite, medication compliant, no behavioral issues, denies pain. MSE Orientation: Alert Affect: calm Mood: congruent with affect Thought Process: linear Perceptions: none Speech: normal Concentration: focused Motor activity: normal Level of consciousness: alert Memory: intact Interaction: Moderate Objective - Criteria for Continued Treatment Criteria for Continued Treatment: Improving Level of Functioning, Improving Treatment / Medication Compliance - Mental Status Mental Status: Oriented x 3 - Objective Observation Participation Level: Full Assessment and Plan - Patient Problems (1) Methamphetamine use disorder, severe Current Visit: Yes Status: Acute Plan to address problem: As below (2) Substance-induced psychotic disorder with hallucinations Current Visit: Yes Status: Acute Plan to address problem: Patient will be admitted for inpatient psychiatric evaluation, medication adjustment and close monitoring The patient's behavior, mood, sleep and appetite will be closely monitored. Patient will be enrolled in individual and group therapeutic sessions and encouraged to attend. Patient will be provided with a safe and structured environment. Patient's physical health needs will be addressed by the Hospitalist. Social Assessment will be completed and the Butcher All Round will work with patient and family to ensure a suitable and safe disposition Medication adjustment will be made as clinically indicated The patient agreed on the treatment plan, understood the risk, benefit, alternative treatment, potential consequence of no treatment, and gave informed consent. Medications and Allergies Allergies Allergy/AdvReac Type Severity Reaction Status Date / Time ibuprofen Allergy Nausea Verified 02/06/19 21:29 Home Medications Medication Instructions Recorded Confirmed Last Taken Type Cyclobenzaprine 10 mg PO TID PRN 02/06/19 02/06/19 Unknown History DULoxetine [Cymbalta] 60 mg PO QDAY 02/06/19 02/06/19 Unknown History Docusate Sodium [Colace CAP] 100 mg PO DAILY PRN 02/06/19 02/06/19 Unknown History Furosemide [Lasix] 20 mg PO QDAY 02/06/19 02/06/19 Unknown History Gabapentin [Neurontin] 300 mg PO Q8HR 02/06/19 02/06/19 Unknown History Loratadine [Claritin] 10 mg PO DAILY 02/06/19 02/06/19 Unknown History Pravastatin [Pravachol] 40 mg PO QHS 02/06/19 02/06/19 Unknown History Tiotropium [Spiriva] 18 mcg IH QDAY 02/06/19 02/06/19 Unknown History Trandolapril/Verapamil HCl 4 mg PO DAILY 02/06/19 02/06/19 Unknown History amLODIPine [Norvasc] 5 mg PO DAILY 02/06/19 02/06/19 Unknown History hydroCHLOROthiazide 50 mg PO DAILY MDD HTN 02/06/19 02/06/19 Unknown History [Hydrochlorothiazide] risperiDONE [RisperDAL] 1 mg PO DAILY 02/06/19 02/06/19 Unknown History risperiDONE [RisperDAL] 2 mg PO HS 02/06/19 02/06/19 Unknown History Active Meds: Active Medications Acetaminophen (Tylenol) 650 mg PO Q6H PRN PRN Reason: Pain, Mild (1-3) Last Admin: 02/09/19 17:35 Dose: 650 mg Documented by: Amlodipine Besylate (Amlodipine) 5 mg PO DAILY [facility] Last Admin: 02/10/19 15:58 Dose: 5 mg Documented by: Cyclobenzaprine HCl (Flexeril) 10 mg PO Q8H PRN PRN Reason: Muscle Spasm Docusate Sodium (Colace) 100 mg PO DAILY PRN PRN Reason: Constipation Duloxetine HCl (Cymbalta) 60 mg PO QDAY [facility] Last Admin: 02/10/19 09:17 Dose: 60 mg Documented by: Furosemide (Lasix) 20 mg PO QDAY [facility] Last Admin: 02/10/19 09:21 Dose: 20 mg Documented by: Gabapentin (Gabapentin) 300 mg PO Q8HR [facility] Last Admin: 02/11/19 05:29 Dose: 300 mg Documented by: Haloperidol Lactate (Haldol) 5 mg IM Q6H PRN PRN Reason: Agitation Last Admin: 02/07/19 00:26 Dose: 5 mg Documented by: Hydrochlorothiazide (Hctz) 50 mg PO QDAY [facility] Last Admin: 02/10/19 09:19 Dose: 50 mg Documented by: Lisinopril (Zestril) 20 mg PO QDAY [facility] Last Admin: 02/10/19 16:03 Dose: Not Given Documented by: Loratadine (Claritin) 10 mg PO DAILY [facility] Last Admin: 02/10/19 09:20 Dose: 10 mg Documented by: Lorazepam (Ativan) 2 mg IM Q6H PRN PRN Reason: Agitation Pravastatin Sodium (Pravachol) 40 mg PO QHS [facility] Last Admin: 02/10/19 21:05 Dose: 40 mg Documented by: Risperidone (Risperdal) 1 mg PO DAILY [facility] Last Admin: 02/10/19 09:19 Dose: 1 mg Documented by: Risperidone (Risperdal) 2 mg PO QHS [facility] Last Admin: 02/10/19 21:05 Dose: 2 mg Documented by: Tiotropium [place] (Spiriva) 1 puff IH Q24HRT [facility] Last Admin: 02/10/19 11:54 Dose: 1 puff Documented by: Trazodone HCl (Desyrel) 50 mg PO QHS [facility] Last Admin: 02/10/19 21:05 Dose: 50 mg Documented by: Verapamil HCl (Calan Sr) 240 mg PO QDAY [facility] Last Admin: 02/10/19 15:58 Dose: 240 mg Documented by: Results - Results Labs/Vitals: Laboratory Last Values WBC 6.7 K/mm3 (4.5-11.0) 02/06/19 16:42 RBC 4.73 M/mm3 (3.65-5.03) 02/06/19 16:42 Hgb 14.1 gm/dl (11.8-15.2) 02/06/19 16:42 Hct 43.3 % (35.5-45.6) 02/06/19 16:42 MCV 92 fl (84-94) 02/06/19 16:42 MCH 30 pg (28-32) 02/06/19 16:42 MCHC 33 % (32-34) 02/06/19 16:42 RDW 14.9 % (13.2-15.2) 02/06/19 16:42 Plt Count 248 K/mm3 (140-440) 02/06/19 16:42 Lymph % (Auto) 24.5 % (13.4-35.0) 02/06/19 16:42 [place] % (Auto) 6.5 % (0.0-7.3) 02/06/19 16:42 Eos % (Auto) 1.9 % (0.0-4.3) 02/06/19 16:42 Baso % (Auto) 0.9 % (0.0-1.8) 02/06/19 16:42 Lymph # 1.6 K/mm3 (1.2-5.4) 02/06/19 16:42 [place] # 0.4 K/mm3 (0.0-0.8) 02/06/19 16:42 Eos # 0.1 K/mm3 (0.0-0.4) 02/06/19 16:42 Baso # 0.1 K/mm3 (0.0-0.1) 02/06/19 16:42 Seg Neutrophils % 66.2 % (40.0-70.0) 02/06/19 16:42 Seg Neutrophils # 4.4 K/mm3 (1.8-7.7) 02/06/19 16:42 Sodium 138 mmol/L (137-145) 02/08/19 09:29 Potassium 4.3 mmol/L (3.6-5.0) 02/08/19 09:29 Chloride 101.2 mmol/L (98-107) 02/08/19 09:29 Carbon Dioxide 20 mmol/L (22-30) L 02/08/19 09:29 Anion Gap 21 mmol/L 02/08/19 09:29 BUN 21 mg/dL (9-20) H 02/08/19 09:29 Creatinine 0.7 mg/dL (0.8-1.5) L 02/08/19 09:29 Estimated GFR > 60 ml/min 02/08/19 09:29 BUN/Creatinine Ratio 30 % 02/08/19 09:29 Glucose 202 mg/dL (75-100) H 02/08/19 09:29 POC Glucose 95 (70-105) 02/06/19 17:33 Hemoglobin A1c 5.9 % (4-6) 02/06/19 16:42 Calcium 9.2 mg/dL (8.4-10.2) 02/08/19 09:29 Total Bilirubin 0.20 mg/dL (0.1-1.2) 02/06/19 16:42 AST 12 units/L (5-40) 02/06/19 16:42 ALT 11 units/L (7-56) 02/06/19 16:42 Alkaline Phosphatase 66 units/L (35-129) 02/06/19 16:42 Total Protein 6.6 g/dL (6.3-8.2) 02/06/19 16:42 Albumin 3.8 g/dL (3.9-5) L 02/06/19 16:42 Albumin/Globulin Ratio 1.4 % 02/06/19 16:42 Triglycerides 86 mg/dL (2-149) 02/06/19 16:42 Cholesterol 137 mg/dL (50-199) 02/06/19 16:42 LDL Cholesterol Direct 66 mg/dL (50-130) 02/06/19 16:42 HDL Cholesterol 62 mg/dL (40-59) H 02/06/19 16:42 Cholesterol/HDL Ratio 2.20 % 02/06/19 16:42 Last Vital Signs Temp 97.6 F 02/10/19 20:38 Pulse 96 H 02/10/19 20:38 Resp 18 02/10/19 20:38 BP 99/60 02/10/19 20:38 Pulse Ox 95 02/10/19 20:38
[2019-02-11] MEDS: hydroCHLOROthiazide 25 MG TAB PO SCH (09:55)
[2019-02-11] MEDS: DULoxetine 30 MG CAP PO SCH (09:57)
[2019-02-11] MEDS: VERAPAMIL ER 240 MG TAB PO SCH (09:58)
[2019-02-11] MEDS: TIOTROPIUM 18 MCG CAP INHALATION IH SCH (09:58)
[2019-02-11] MEDS: LORATADINE (NF) 10 MG TAB PO SCH (09:59)
[2019-02-11] MEDS: FUROSEMIDE 20 MG TAB PO SCH (09:59)
[2019-02-11] MEDS: amLODIPine 5 MG TAB PO SCH (10:00)
[2019-02-11] MEDS: risperiDONE 1 MG TAB PO SCH ×2 (10:00→21:46)
[2019-02-11] MEDS: LISINOPRIL 20 MG TAB PO SCH (10:15)
[2019-02-11] MEDS: traZODone 50 MG TAB PO SCH (21:44)
[2019-02-11] MEDS: PRAVASTATIN 40 MG TAB PO SCH (21:45)
[2019-02-11] MEDS: ACETAMINOPHEN 325 MG TAB PO PRN (21:45)
[2019-02-12] MEDS: GABAPENTIN 300 MG CAP PO SCH (07:00)
[2019-02-12] MEDS: TIOTROPIUM 18 MCG CAP INHALATION IH SCH (09:39)
[2019-02-12] MEDS: ACETAMINOPHEN 325 MG TAB PO PRN (09:40)
[2019-02-12] MEDS: DULoxetine 30 MG CAP PO SCH (09:53)
[2019-02-12] MEDS: hydroCHLOROthiazide 25 MG TAB PO SCH (09:54)
[2019-02-12] MEDS: FUROSEMIDE 20 MG TAB PO SCH (09:55)
[2019-02-12] MEDS: LORATADINE (NF) 10 MG TAB PO SCH (09:55)
[2019-02-12] MEDS: LISINOPRIL 20 MG TAB PO SCH (09:56)
[2019-02-12] MEDS: risperiDONE 1 MG TAB PO SCH (09:56)
[2019-02-12] MEDS: amLODIPine 5 MG TAB PO SCH (09:57)
[2019-02-12] MEDS: VERAPAMIL ER 240 MG TAB PO SCH (09:58)
[2019-02-12 09:59] VITALS: BP 101/68
--- NOTE | 2019-02-12 10:48 | Discharge Summary ---
Providers - Providers Date of Admission: 02/06/19 16:13 Date of discharge: 02/12/19 Attending physician: LARISSA HENNING MD 02/06/19 12:04 Consult to Physician [CONS] Routine Comment: Consulting Provider: ATUL DAI Physician Instructions: Reason For Exam: Medical management of Geripsych patient Primary care physician: MAINTENANCE AIDE Hospitalization Reason for admission: Methamphetamine induced visual hallucinations Condition: Good Hospital course: The patient was provided inpatient psychiatric treatment with safe and supportive environment, group therapy, individual counseling, psychiatric medication, medication adjustment, adverse effect monitor, medical evaluation, medical treatment, social service assessment, family/social support meeting, placement assessment and psycho-education. The patients mood, anxiety, thoughts, stress management skill, cognition, impulse/anger control, motivation, understanding of disease, compliance to treatment and appreciation on family/social support are improved and stabilized. At the time of discharge, the patient had no suicidal ideas, no homicidal ideas, no aggressive thoughts, no endangering behavior and no debilitating adverse effects. The patient agreed on the treatment plan, understood the risk, benefit, alternative treatment, potential consequence of no treatment, and gave informed consent. Disposition: DC-01 TO HOME OR SELFCARE Allergies/Adverse Reactions: Allergies ibuprofen Allergy (Verified 02/06/19 21:29) Nausea Vital Signs: Last Vital Signs Temp 97.7 F 02/11/19 20:21 Pulse 97 H 02/12/19 09:58 Resp 20 02/11/19 20:21 BP 101/68 02/12/19 09:58 Pulse Ox 97 02/11/19 20:21 Last Lab: Laboratory Last Values WBC 6.7 K/mm3 (4.5-11.0) 02/06/19 16:42 RBC 4.73 M/mm3 (3.65-5.03) 02/06/19 16:42 Hgb 14.1 gm/dl (11.8-15.2) 02/06/19 16:42 Hct 43.3 % (35.5-45.6) 02/06/19 16:42 MCV 92 fl (84-94) 02/06/19 16:42 MCH 30 pg (28-32) 02/06/19 16:42 MCHC 33 % (32-34) 02/06/19 16:42 RDW 14.9 % (13.2-15.2) 02/06/19 16:42 Plt Count 248 K/mm3 (140-440) 02/06/19 16:42 Lymph % (Auto) 24.5 % (13.4-35.0) 02/06/19 16:42 [place] % (Auto) 6.5 % (0.0-7.3) 02/06/19 16:42 Eos % (Auto) 1.9 % (0.0-4.3) 02/06/19 16:42 Baso % (Auto) 0.9 % (0.0-1.8) 02/06/19 16:42 Lymph # 1.6 K/mm3 (1.2-5.4) 02/06/19 16:42 [place] # 0.4 K/mm3 (0.0-0.8) 02/06/19 16:42 Eos # 0.1 K/mm3 (0.0-0.4) 02/06/19 16:42 Baso # 0.1 K/mm3 (0.0-0.1) 02/06/19 16:42 Seg Neutrophils % 66.2 % (40.0-70.0) 02/06/19 16:42 Seg Neutrophils # 4.4 K/mm3 (1.8-7.7) 02/06/19 16:42 Sodium 138 mmol/L (137-145) 02/08/19 09:29 Potassium 4.3 mmol/L (3.6-5.0) 02/08/19 09:29 Chloride 101.2 mmol/L (98-107) 02/08/19 09:29 Carbon Dioxide 20 mmol/L (22-30) L 02/08/19 09:29 Anion Gap 21 mmol/L 02/08/19 09:29 BUN 21 mg/dL (9-20) H 02/08/19 09:29 Creatinine 0.7 mg/dL (0.8-1.5) L 02/08/19 09:29 Estimated GFR > 60 ml/min 02/08/19 09:29 BUN/Creatinine Ratio 30 % 02/08/19 09:29 Glucose 202 mg/dL (75-100) H 02/08/19 09:29 POC Glucose 95 (70-105) 02/06/19 17:33 Hemoglobin A1c 5.9 % (4-6) 02/06/19 16:42 Calcium 9.2 mg/dL (8.4-10.2) 02/08/19 09:29 Total Bilirubin 0.20 mg/dL (0.1-1.2) 02/06/19 16:42 AST 12 units/L (5-40) 02/06/19 16:42 ALT 11 units/L (7-56) 02/06/19 16:42 Alkaline Phosphatase 66 units/L (35-129) 02/06/19 16:42 Total Protein 6.6 g/dL (6.3-8.2) 02/06/19 16:42 Albumin 3.8 g/dL (3.9-5) L 02/06/19 16:42 Albumin/Globulin Ratio 1.4 % 02/06/19 16:42 Triglycerides 86 mg/dL (2-149) 02/06/19 16:42 Cholesterol 137 mg/dL (50-199) 02/06/19 16:42 LDL Cholesterol Direct 66 mg/dL (50-130) 02/06/19 16:42 HDL Cholesterol 62 mg/dL (40-59) H 02/06/19 16:42 Cholesterol/HDL Ratio 2.20 % 02/06/19 16:42 - Discharge Diagnoses (1) Methamphetamine use disorder, severe Status: Acute (2) Substance-induced psychotic disorder with hallucinations Status: Acute Core Measure Documentation - Palliative Care Palliative Care/ Comfort Measures: Not Applicable - Core Measures Any of the following diagnoses?: none Exam - Constitutional Vitals: Temp Pulse Resp BP Pulse Ox 97.7 F 97 H 20 101/68 97 02/11/19 20:21 02/12/19 09:58 02/11/19 20:21 02/12/19 09:58 02/11/19 20:21 General appearance: Present: no acute distress, well-nourished - EENT Eyes: Present: PERRL, EOM intact ENT: hearing intact, clear oral mucosa - Neck Neck: Present: supple, normal ROM - Respiratory Respiratory effort: normal Plan Activity: advance as tolerated Weight Bearing Status: Weight Bear as Tolerated Care Plan Goals: Maintain good and stable mental health Plan of Treatment: Take medications as prescribe Health Concerns: None Assessment: Substance induced psychotic disorder Follow up with: PRIMARY CARE, [Primary Care Provider] - 7 Days
== END 2019-02-12 13:00 | disposition home or self-care (01) | DRG 897 ==
LOC: 3A 11:29 → UNDOADMIN 11:29 → 5A 16:13
PROVIDERS: ADMIT Psychiatry & Neurology Psychiatry; ATTEND Psychiatry & Neurology Psychiatry
DX: F15.151 Other stimulant abuse with stimulant-induced psychotic disorder with hallucinations (principal); E87.2 Acidosis; F10.188 Alcohol abuse with other alcohol-induced disorder; F15.10 Other stimulant abuse, uncomplicated; Y90.9 Presence of alcohol in blood, level not specified; F17.210 Nicotine dependence, cigarettes, uncomplicated; F41.9 Anxiety disorder, unspecified; I10 Essential (primary) hypertension; J44.9 Chronic obstructive pulmonary disease, unspecified; F19.10 Other psychoactive substance abuse, uncomplicated; Z88.6 Allergy status to analgesic agent; Z79.899 Other long term (current) drug therapy; Z79.51 Long term (current) use of inhaled steroids; Z82.49 Family history of ischemic heart disease and other diseases of the circulatory system
CPT/HCPCS: 36415; 80048; 80053; 80061; 82962; 83036; 85025; 94640; G0378; A9270-GY; J1630